=== PATIENT | female | born 1935 | race Hispanic/Latino ===

== ENCOUNTER 2023-01-23 14:44 | Emergency (ER) | payer MEDICARE, OTHER ==
[~2023-01-23] VITALS: Ht 144.8 cm; Wt 40.8 kg
[2023-01-23 15:36] VITALS: BP 143/54; PULSE 71; RESP 18; O2SAT 98
== END 2023-01-23 16:11 | disposition home or self-care (01) ==
LOC: EDH 14:44
DX: S80.02XA Contusion of left knee, initial encounter (principal); R07.89 Other chest pain; I10 Essential (primary) hypertension; E11.9 Type 2 diabetes mellitus without complications; E78.00 Pure hypercholesterolemia, unspecified; W18.39XA Other fall on same level, initial encounter; Y93.89 Activity, other specified; Y92.098 Other place in other non-institutional residence as the place of occurrence of the external cause; Y99.8 Other external cause status
CPT/HCPCS: 71045; 73562

== ENCOUNTER 2023-03-23 03:43 | Emergency (ER) | payer OTHER ==
[~2023-03-23] VITALS: Ht 152.4 cm; Wt 54.4 kg
[~2023-03-23 03:43] MED LIST: BUSP5TAB3 PO; DICL100G60 TP; FERR-72 PO; MEGE40L PO; VITAD50000 PO
[2023-03-23 04:54] LABS: APPEARANCE,URINE TURBID (CLEAR); BILIRUBIN,URINE NEGATIVE (NEGATIVE); COLOR,URINE LIGHT-ORANGE (YELLOW); GLUCOSE, URINE (UA) NEGATIVE (NEGATIVE); KETONES,URINE NEGATIVE (NEGATIVE); LEUKOCYTE ESTERASE ,URINE 500 Leu/uL (NEGATIVE); NITRATE,URINE NEGATIVE (NEGATIVE); OCCULT BLOOD,URINE SMALL (NEGATIVE); PH,URINE 5.5 (5.0-8.0); PROTEIN,URINE 20 mg/dL (NEGATIVE); UROBILINOGEN,URINE 0.2 mg/dL (0.2-1.0)
[2023-03-23 05:02] LABS: ADD UA MICROSCOPIC YES
[2023-03-23 05:05] LABS: BACTERIA,URINE MANY /HPF (None Seen); MUCUS,URINE FEW LPF (None Seen); RBC,URINE 26-50 /HPF (0-1); WBC CLUMP MANY /HPF (0-1); WBC,URINE TNTC /HPF (0-1)
[2023-03-23] MEDS ORDERED: PHEN-847 PO (05:11)
[2023-03-23] MEDS ORDERED: CEPH500B PO (05:11)
[2023-03-23] MEDS ORDERED: PHENAZOPYRIDINE HCL 200 MG TABLET PO ONE (05:30)
[2023-03-23] MEDS ORDERED: CEFTRIAXONE 2GM VIAL IVPB ONE (05:30)
[2023-03-23 06:30] VITALS: BP 136/79; PULSE 89; RESP 18; O2SAT 96
== END 2023-03-23 06:32 ==
LOC: EDH 03:43
DX: N39.0 Urinary tract infection, site not specified (principal); R33.9 Retention of urine, unspecified; E11.9 Type 2 diabetes mellitus without complications; E78.00 Pure hypercholesterolemia, unspecified; I10 Essential (primary) hypertension
CPT/HCPCS: 99284; 96365; 87077; 87088; 87186; 81001; 51702; J0696